=== PATIENT | male | born 1960 | race Caucasian/White ===

== ENCOUNTER 2023-06-09 12:37 | Inpatient (IN) ==
[2023-06-09] MEDS ORDERED: HYDROmorphone 1 MG/1 ML SYRINGE IV SLOW PU ONE (13:35)
[2023-06-09 13:59] LABS: ABS Lymphocytes 1.1 10^3/uL (1.0-4.8); ABS Monocytes 0.7 10^3/uL (0.0-1.1); ABS Neutrophils 8.8 10^3/uL (1.5-7.6); Eosinophil % 0.1 %; Hematocrit 40.1 % (38-53); Hemoglobin 13.9 g/dL (13.2-16.3); Lymphocyte % 10.7 %; Mean Corpuscular Hemoglobin 33.1 pg (27-33); Mean Corpuscular Hgb Conc 34.6 g/dL (31-36); Mean Corpuscular Volume 95.7 fL (80-97); Mean Platelet Volume 7.9 fL (7.5-11.2); Platelet Count 161 10^3/uL (150-450); Red Blood Count 4.19 10^6/uL (4.06-5.63); Red Cell Distribution Width 13.7 % (12-17); White Blood Count 10.7 10^3/uL (3.6-10.2)
[2023-06-09 14:10] LABS: Activated Partial Thrombo Time 27.7 seconds (26.0-38.0); INR 0.97 (0.83-1.13)
[2023-06-09 14:18] LABS: Albumin 4.5 g/dL (3.2-5.2); Albumin/Globulin Ratio 1.9 (1-3); Calcium 9.4 mg/dL (8.6-10.3); Creatinine, Serum 0.92 mg/dL (0.67-1.17); Globulin 2.4 g/dL (2-4); Potassium 4.5 mmol/L (3.5-5.0); Total Bilirubin 0.5 mg/dL (0.2-1.0); Total Protein 6.9 g/dL (6.4-8.9); eGFR CKD-EPI 94.1 (>60)
[2023-06-09] MEDS ORDERED: Senna TAB 8.6 mg TAB PO PRN (16:04)
[2023-06-09] MEDS: Nicotine PATCH 21 MG/24 HR PATCH TRANSDERM SCH (16:59)
[2023-06-09] MEDS ORDERED: HYDROmorphone 0.5 MG/0.5 ML SYRINGE IV PRN (19:02)
[2023-06-09] MEDS: CMCS: CloBAZam 10 mg TAB (NF) PO SCH (19:14)
[2023-06-09] MEDS ORDERED: LORazepam 2 mg VIAL 1 ml IV PUSH PRN (20:43)
[2023-06-09] MEDS ORDERED: Lorazepam PYXIS KEY PRN (20:43)
[2023-06-09 23:08] LABS: Hematocrit 38.5 % (38-53); Hemoglobin 13.2 g/dL (13.2-16.3)
[2023-06-10 07:29] LABS: ABS Monocytes 0.8 10^3/uL (0.0-1.1); ABS Neutrophils 2.9 10^3/uL (1.5-7.6); ABS Nucleated RBC 0.01 10^3/ul; Eosinophil % 0.3 %; Hematocrit 36.5 % (38-53); Hemoglobin 12.3 g/dL (13.2-16.3); Lymphocyte % 34.9 %; Mean Corpuscular Hemoglobin 32.5 pg (27-33); Mean Corpuscular Hgb Conc 33.6 g/dL (31-36); Mean Corpuscular Volume 96.9 fL (80-97); Mean Platelet Volume 8.3 fL (7.5-11.2); Nucleated Red Blood Cells % 0.1 %/100WBC (0.0-0.8); Platelet Count 127 10^3/uL (150-450); Red Blood Count 3.77 10^6/uL (4.06-5.63); White Blood Count 5.7 10^3/uL (3.6-10.2)
[2023-06-10 08:20] LABS: Anion Gap 10 mmol/L (2-16); Blood Urea Nitrogen 19 mg/dL (6-24); CO2 Carbon Dioxide 24 mmol/L (22-32); Calcium 8.3 mg/dL (8.6-10.3); Chloride 104 mmol/L (101-111); Creatinine, Serum 0.91 mg/dL (0.67-1.17); Glucose 82 mg/dL (70-100); Sodium 138 mmol/L (135-145); eGFR CKD-EPI 95.3 (>60)
[2023-06-10] MEDS: CMCS: CloBAZam 10 mg TAB (NF) PO SCH ×2 (10:16→18:55)
[2023-06-10] MEDS: Nicotine PATCH 21 MG/24 HR PATCH TRANSDERM SCH (10:17)
[2023-06-10] MEDS: Lactated Ringers 1000 ml BAG 1,000 ML IV ONE ×2 (13:11→20:08)
[2023-06-10] MEDS ORDERED: Naloxone 0.4 mg VIAL 0.4 mg/ml 1 ml VIAL IV PRN (15:07)
[2023-06-10] MEDS ORDERED: fentaNYL 100 mcg/2 ml 50 MCG/ML VIAL IV PRN (15:07)
[2023-06-10] MEDS ORDERED: Ondansetron 4 mg VIAL 2 MG/ML 2 ml VIAL IV PRN (15:07)
[2023-06-10] MEDS ORDERED: ceFAZolin 2 GM in NS PREMIX 2 GM/100 ML BAG IVPB ONE (15:11)
[2023-06-10] MEDS ORDERED: Propofol 10 MG/ML 20 ML BTL ONE (15:14)
[2023-06-10] MEDS ORDERED: fentaNYL 100 mcg/2 ml 50 MCG/ML VIAL ONE ×2 (15:14→16:02)
[2023-06-10] MEDS ORDERED: Lidocaine 2% PF 5 ML VIAL ONE (15:14)
[2023-06-10] MEDS ORDERED: Rocuronium 50 mg VIAL 10 mg/ml 5 ml VIAL (50 mg) ONE (15:14)
[2023-06-10] MEDS ORDERED: Bupivacaine 0.5% SDV PF 30ML VIAL ONE (15:26)
[2023-06-10] MEDS ORDERED: Dexamethasone IV 4 MG/ML VIAL 1 ml VIAL ONE (15:55)
[2023-06-10] MEDS ORDERED: Ondansetron 4 mg VIAL 2 MG/ML 2 ml VIAL ONE (15:55)
[2023-06-10 18:31] LABS: Hematocrit 34.1 % (38-53)
[2023-06-10] MEDS: Lactated Ringers 1000 ml BAG 1,000 ML IV SCH ×2 (18:57→20:22)
[2023-06-11 07:26] LABS: ABS Lymphocytes 1.5 10^3/uL (1.0-4.8); ABS Monocytes 1.1 10^3/uL (0.0-1.1); ABS Neutrophils 5.8 10^3/uL (1.5-7.6); Hematocrit 30.5 % (38-53); Hemoglobin 10.6 g/dL (13.2-16.3); Lymphocyte % 17.8 %; Mean Corpuscular Hemoglobin 32.9 pg (27-33); Mean Corpuscular Hgb Conc 34.8 g/dL (31-36); Mean Corpuscular Volume 94.7 fL (80-97); Mean Platelet Volume 8.1 fL (7.5-11.2); Platelet Count 103 10^3/uL (150-450); Red Blood Count 3.22 10^6/uL (4.06-5.63); Red Cell Distribution Width 13.5 % (12-17); White Blood Count 8.4 10^3/uL (3.6-10.2)
[2023-06-11 07:44] LABS: Calcium 8.4 mg/dL (8.6-10.3); Creatinine, Serum 0.93 mg/dL (0.67-1.17); Potassium 4.4 mmol/L (3.5-5.0); eGFR CKD-EPI 92.8 (>60)
[2023-06-11] MEDS: CMCS: CloBAZam 10 mg TAB (NF) PO SCH ×2 (09:55→18:31)
[2023-06-11] MEDS: Nicotine PATCH 21 MG/24 HR PATCH TRANSDERM SCH (09:55)
[2023-06-11] MEDS: Enoxaparin 40 MG/0.4 ML SYR SUBCUT SCH (10:04)
[2023-06-12 06:30] LABS: ABS Lymphocytes 1.7 10^3/uL (1.0-4.8); ABS Monocytes 1.1 10^3/uL (0.0-1.1); ABS Neutrophils 5.1 10^3/uL (1.5-7.6); ABS Nucleated RBC 0.01 10^3/ul; Eosinophil % 0.5 %; Hematocrit 26.8 % (38-53); Hemoglobin 9.4 g/dL (13.2-16.3); Lymphocyte % 21.5 %; Mean Corpuscular Hemoglobin 33.2 pg (27-33); Mean Platelet Volume 8.5 fL (7.5-11.2); Nucleated Red Blood Cells % 0.1 %/100WBC (0.0-0.8); Platelet Count 103 10^3/uL (150-450); Red Blood Count 2.82 10^6/uL (4.06-5.63); Red Cell Distribution Width 13.8 % (12-17); White Blood Count 7.9 10^3/uL (3.6-10.2)
[2023-06-12 06:48] LABS: Calcium 8.4 mg/dL (8.6-10.3); Creatinine, Serum 0.77 mg/dL (0.67-1.17); Potassium 4.4 mmol/L (3.5-5.0); eGFR CKD-EPI 101.2 (>60)
[2023-06-12] MEDS: Polyethylene Glycol 3350 17 GM PACKET PO PRN (08:10)
[2023-06-12] MEDS: Nicotine PATCH 21 MG/24 HR PATCH TRANSDERM SCH (08:11)
[2023-06-12] MEDS: Enoxaparin 40 MG/0.4 ML SYR SUBCUT SCH (08:12)
[2023-06-12] MEDS: CMCS: CloBAZam 10 mg TAB (NF) PO SCH ×2 (08:14→15:39)
[2023-06-12] MEDS: Magnesium Hydroxide LIQ 30 ML UDC PO PRN (17:14)
[2023-06-12] MEDS: Ondansetron 4 mg VIAL 2 MG/ML 2 ml VIAL IV PRN (17:18)
[2023-06-13 05:55] LABS: ABS Eosinophils 0.1 10^3/uL (0.0-0.5); ABS Lymphocytes 1.9 10^3/uL (1.0-4.8); ABS Monocytes 0.9 10^3/uL (0.0-1.1); ABS Neutrophils 3.9 10^3/uL (1.5-7.6); ABS Nucleated RBC 0.01 10^3/ul; Eosinophil % 1.1 %; Hematocrit 25.3 % (38-53); Hemoglobin 8.8 g/dL (13.2-16.3); Lymphocyte % 28.1 %; Mean Corpuscular Hemoglobin 33.1 pg (27-33); Mean Corpuscular Hgb Conc 34.7 g/dL (31-36); Mean Corpuscular Volume 95.3 fL (80-97); Mean Platelet Volume 8.6 fL (7.5-11.2); Nucleated Red Blood Cells % 0.1 %/100WBC (0.0-0.8); Platelet Count 112 10^3/uL (150-450); Red Blood Count 2.66 10^6/uL (4.06-5.63); Red Cell Distribution Width 13.6 % (12-17); White Blood Count 6.7 10^3/uL (3.6-10.2)
[2023-06-13 07:04] LABS: Calcium 8.3 mg/dL (8.6-10.3); Creatinine, Serum 0.86 mg/dL (0.67-1.17); Magnesium 1.9 mg/dL (1.9-2.7); Potassium 4.2 mmol/L (3.5-5.0); eGFR CKD-EPI 97.9 (>60)
[2023-06-13] MEDS: Polyethylene Glycol 3350 17 GM PACKET PO PRN (07:31)
[2023-06-13] MEDS: Magnesium Hydroxide LIQ 30 ML UDC PO PRN ×2 (08:55→13:53)
[2023-06-13] MEDS: Nicotine PATCH 21 MG/24 HR PATCH TRANSDERM SCH (08:57)
[2023-06-13] MEDS: CMCS: CloBAZam 10 mg TAB (NF) PO SCH ×2 (08:58→16:07)
[2023-06-13] MEDS: Enoxaparin 40 MG/0.4 ML SYR SUBCUT SCH (08:59)
[2023-06-13] MEDS ORDERED: Magnesium Sulfate IV 1GM/100ML 1 GM/100 ML BAG IV ONE (12:19)
[2023-06-13] MEDS: Ondansetron 4 mg VIAL 2 MG/ML 2 ml VIAL IV PRN (14:17)
[2023-06-13 18:47] LABS: Hematocrit 24.6 % (38-53); Hemoglobin 8.7 g/dL (13.2-16.3); Mean Corpuscular Hemoglobin 33.4 pg (27-33); Mean Corpuscular Hgb Conc 35.2 g/dL (31-36); Mean Corpuscular Volume 94.9 fL (80-97); Mean Platelet Volume 8.4 fL (7.5-11.2); Platelet Count 150 10^3/uL (150-450); Red Blood Count 2.59 10^6/uL (4.06-5.63); Red Cell Distribution Width 13.6 % (12-17); White Blood Count 6.8 10^3/uL (3.6-10.2)
[2023-06-14 06:03] LABS: ABS Eosinophils 0.1 10^3/uL (0.0-0.5); ABS Lymphocytes 1.8 10^3/uL (1.0-4.8); ABS Monocytes 0.9 10^3/uL (0.0-1.1); Eosinophil % 1.1 %; Hemoglobin 8.8 g/dL (13.2-16.3); Lymphocyte % 26.3 %; Mean Corpuscular Hemoglobin 33.4 pg (27-33); Mean Corpuscular Volume 95.4 fL (80-97); Mean Platelet Volume 8.1 fL (7.5-11.2); Platelet Count 155 10^3/uL (150-450); Red Blood Count 2.62 10^6/uL (4.06-5.63); Red Cell Distribution Width 13.4 % (12-17); White Blood Count 6.9 10^3/uL (3.6-10.2)
[2023-06-14 06:20] LABS: Calcium 8.2 mg/dL (8.6-10.3); Creatinine, Serum 0.92 mg/dL (0.67-1.17); Potassium 4.5 mmol/L (3.5-5.0); eGFR CKD-EPI 94.1 (>60)
[2023-06-14] MEDS: Enoxaparin 40 MG/0.4 ML SYR SUBCUT SCH (08:13)
[2023-06-14] MEDS: Nicotine PATCH 21 MG/24 HR PATCH TRANSDERM SCH (08:14)
[2023-06-14] MEDS: CMCS: CloBAZam 10 mg TAB (NF) PO SCH ×2 (08:18→16:05)
[2023-06-15] MEDS: CMCS: CloBAZam 10 mg TAB (NF) PO SCH ×2 (09:08→16:02)
[2023-06-15] MEDS: Nicotine PATCH 21 MG/24 HR PATCH TRANSDERM SCH (09:09)
[2023-06-15] MEDS: Enoxaparin 40 MG/0.4 ML SYR SUBCUT SCH (09:09)
[2023-06-15] MEDS ORDERED: LORazepam 2 mg VIAL 1 ml ONE (11:00)
[2023-06-16] MEDS: Enoxaparin 40 MG/0.4 ML SYR SUBCUT SCH (08:34)
[2023-06-16] MEDS: CMCS: CloBAZam 10 mg TAB (NF) PO SCH ×2 (08:34→15:53)
[2023-06-16] MEDS: Nicotine PATCH 21 MG/24 HR PATCH TRANSDERM SCH (08:34)
[2023-06-17] MEDS: Enoxaparin 40 MG/0.4 ML SYR SUBCUT SCH (09:58)
[2023-06-17] MEDS: Polyethylene Glycol 3350 17 GM PACKET PO PRN (10:04)
[2023-06-17] MEDS: Nicotine PATCH 21 MG/24 HR PATCH TRANSDERM SCH (10:05)
[2023-06-17] MEDS: Ondansetron 4 mg VIAL 2 MG/ML 2 ml VIAL IV PRN (12:19)
[2023-06-18] MEDS: Nicotine PATCH 21 MG/24 HR PATCH TRANSDERM SCH (08:51)
[2023-06-18] MEDS: Enoxaparin 40 MG/0.4 ML SYR SUBCUT SCH (08:51)
[2023-06-19 06:39] VITALS: BP 139/81
[2023-06-19] MEDS: Enoxaparin 40 MG/0.4 ML SYR SUBCUT SCH (09:42)
[2023-06-19] MEDS: Nicotine PATCH 21 MG/24 HR PATCH TRANSDERM SCH (09:44)
== END 2023-06-19 10:35 | disposition home or self-care (01) | DRG 308 ==
LOC: ED 12:37 → EDHOLD 16:04 → SUATTDRO 16:04 → MEDTELE 21:23 → SSU 06-10 16:33
PROVIDERS: ADMIT Internal Medicine; ATTEND Student in an Organized Health Care Education/Training Program